=== PATIENT | female | born 1980 | race African-American/Black ===

== ENCOUNTER 2024-03-19 02:38 | Inpatient (IN) | payer BC, MEDICAID ==
[~2024-03-19] VITALS: Ht 162.6 cm; Wt 55.3 kg
[2024-03-19 02:48] VITALS: O2SAT 100
[2024-03-19 03:49] LABS: BASOPHILS % 0.5 % (0.0-2.0); EOSINOPHILS % 0.2 % (0.0-5.0); HEMATOCRIT. 43.2 % (36.0-48.0); HEMOGLOBIN. 15.3 g/dL (12.0-16.0); LYMPHOCYTES % 17.9 % (20.0-50.0); MEAN CORPUSCULAR HEMOGLOBIN 29.8 pg (28.0-32.0); MEAN CORPUSCULAR HGB CONC 35.4 g/dL (31.0-37.0); MEAN CORPUSCULAR VOLUME 84.2 fL (81.0-99.0); MEAN PLATELET VOLUME 8.2 fl (7.4-10.4); MONOCYTES % 6.7 % (2.0-8.0); NEUTROPHILS % 74.7 % (40.0-76.0); PLATELET 200 x1000/uL (130-400); RED BLOOD CELL COUNT 5.13 mill/uL (4.2-5.4); RED CELL DISTRIBUTION WIDTH 13.1 % (11.6-14.6); WHITE BLOOD COUNT 6.4 x1000/uL (4.5-11.0)
[2024-03-19] MEDS: SODIUM CHLORIDE 0.9% 1,000 ML IV ONE (03:54)
[2024-03-19 03:55] LABS: CHLORIDE 97 mEq/L (98-107); POTASSIUM 4.6 mEq/L (3.5-5.1); SODIUM 133 mEq/L (136-145)
[2024-03-19] MEDS: METOCLOPRAMIDE HCL 10MG/2ML VIAL IV STA (03:55)
[2024-03-19] MEDS: KETOROLAC 30MG/ML VIAL IV STA (03:55)
[2024-03-19 03:56] LABS: CALCIUM 9.6 mg/dL (8.7-10.4); CARBON DIOXIDE 26 mEq/L (21-32)
[2024-03-19 04:01] LABS: CREATININE 1.2 mg/dL (0.6-1.0); UREA NITROGEN BLOOD 13 mg/dL (9-23)
[2024-03-19 04:03] LABS: ALANINE AMINOTRANSFERASE 10 IU/L (10-49); ALBUMIN 4.2 g/dL (3.2-4.8); ASPARTATE AMINOTRANSFERASE 31 IU/L (<34); BILIRUBIN DIRECT 0.2 mg/dL (<=3.0); BILIRUBIN TOTAL 0.8 mg/dL (0.1-1.0); PROTEIN TOTAL 7.3 g/dL (6.0-8.3)
[2024-03-19 04:12] LABS: BETA HYDROXYBUTYRATE 1.1 mMol/L (0.0-0.3)
[2024-03-19 04:42] LABS: ETHANOL BLOOD < 10 mg/dL (<10); GLUCOSE 416 mg/dL (70-105)
[2024-03-19 04:44] LABS: HCG SCREEN NEGATIVE
[2024-03-19] MEDS ORDERED: DOCUSATE SODIUM 100MG CAPSULE PO PRN (05:15)
[2024-03-19] MEDS ORDERED: MAGNESIUM/ALUMINUM HYDROXIDE/SIMETHICONE 30ML UDC PO PRN (05:15)
[2024-03-19] MEDS ORDERED: NA PHOS,M-B/NA PHOS,DI-BA ENEMA 118ML PR PRN (05:15)
[2024-03-19] MEDS ORDERED: HYDROCODONE/ACETAMINOPHEN 5/325MG TABLET PO PRN (05:15)
[2024-03-19] MEDS ORDERED: GUAIFENESIN 200MG/10ML SUGAR FREE UDC PO PRN (05:15)
[2024-03-19] MEDS ORDERED: IPRATROPIUM/ALBUTEROL 0.5-3(2.5)MG/3ML NEB HHN PRN (05:15)
[2024-03-19] MEDS ORDERED: DEXTROSE 50% WATER 50ML SYRINGE IV PRN (05:15)
[2024-03-19] MEDS ORDERED: ACETAMINOPHEN 325MG TABLET PO PRN ×2 (05:15)
[2024-03-19] MEDS ORDERED: ONDANSETRON HCL 4MG/2ML INJ IV PRN (05:15)
[2024-03-19] MEDS: INSULIN REGULAR (HUMULIN R) 1000UNITS/10ML VIAL IV NR (05:43)
[2024-03-19] MEDS: SODIUM CHLORIDE 0.9% 1,000 ML IV SCH (05:43)
[2024-03-19 06:13] LABS: BG BASE EXCESS 1.9 mmol/L (-2.0-3.0); BG CARBOXYHEMOGLOBIN 0.6 % (0.5-1.5); BG FRACTION INSPIRED OXYGEN 21; BG HCO3 ACT 25.9 mmol/L (21.0-28.0); BG METHEMOGLOBIN 0.3 % (0.5-1.5); BG OXYHEMOGLOBIN 97.1 % (94.0-98.0); BG PCO2 38.9 mmHg (32.0-45.0); BG PH 7.442 (7.350-7.450); BG PO2 108.1 mmHg (83.0-108.0); BG SAMPLE SITE RIGHT RADIAL; BG TOTAL HEMOGLOBIN 13.8 g/dL (12.0-16.0); BG VENT MODE ROOM AIR
[2024-03-19] MEDS: METOCLOPRAMIDE HCL 10MG/2ML VIAL IV SCH (06:15)
[2024-03-19] MEDS ORDERED: INSULIN LISPRO 100 UNITS/ML SUBCUT SCH (08:20)
[2024-03-19] MEDS: INSULIN LISPRO 100 UNITS/ML SUBCUT SCH (08:36)
[2024-03-19] MEDS: PANTOPRAZOLE SODIUM 40 MG/VIAL IV SCH (09:22)
[2024-03-19] MEDS: BLOOD SUGAR DIAGNOSTIC STRIP TEST SCH (09:22)
[2024-03-19] MEDS: SODIUM CHLORIDE 0.45% 500 ML IV ONE (10:00)
[2024-03-19 10:23] LABS: CALCIUM 8.7 mg/dL (8.7-10.4); CARBON DIOXIDE 25 mEq/L (21-32); CHLORIDE 103 mEq/L (98-107); POTASSIUM 3.4 mEq/L (3.5-5.1); SODIUM 137 mEq/L (136-145)
[2024-03-19 10:28] LABS: GLUCOSE 228 mg/dL (70-105)
[2024-03-19 10:29] LABS: LDL CHOLESTEROL 71 mg/dL (5-100); TRIGLYCERIDE 42 mg/dL (0-150); UREA NITROGEN BLOOD 16 mg/dL (9-23)
[2024-03-19 10:30] LABS: CHOLESTEROL 167 mg/dL (<200); HDL CHOLESTEROL 73 mg/dL (>65)
[2024-03-19 10:31] LABS: BETA HYDROXYBUTYRATE 0.2 mMol/L (0.0-0.3); PHOSPHORUS 3.3 mg/dL (2.5-4.9)
[2024-03-19] MEDS: INSULIN GLARGINE 100 UNITS/ML SUBCUT SCH (11:15)
[2024-03-19 11:46] VITALS: BP 167/90; PULSE 98; RESP 18; TEMP 37.252
[2024-03-19 12:00] VITALS: BP 167/90; PULSE 98; RESP 18; TEMP 37.2252; O2SAT 98
[2024-03-19 13:08] LABS: T4 FREE 1.82 ng/dL (0.89-1.76); TROPONIN I HIGH SENSITIVITY < 4 ng/L (3.0-34)
[2024-03-19 13:09] LABS: THYROID STIMULATING HORMONE 1.79 uIU/mL (0.55-4.78)
[2024-03-19 14:00] VITALS: BP 169/97; PULSE 99; RESP 18; TEMP 37.16964; O2SAT 98
[2024-03-19 16:00] VITALS: BP 169/97; PULSE 99; RESP 18; TEMP 36.89184; O2SAT 98
[2024-03-19] MEDS: MAGNESIUM 4 G PREMIX 100 ML IV NR (16:33)
[2024-03-19] MEDS: POTASSIUM CHLORIDE 20MEQ TABLET SR PO NR (16:33)
[2024-03-19] MEDS: CLONIDINE 0.1MG TABLET PO PRN (17:47)
[2024-03-19 18:58] LABS: TROPONIN I HIGH SENSITIVITY < 4 ng/L (3.0-34)
[2024-03-19] MEDS ORDERED: HYDRALAZINE 20MG/ML VIAL IV PRN (19:00)
[2024-03-19] MEDS ORDERED: HYDRALAZINE 10 MG in SODIUM CHLORIDE 0.9% 49.5 ML IV PRN (19:15)
[2024-03-19 19:39] LABS: CLARITY URINE CLOUDY (CLEAR); COLOR URINE YELLOW (YELLOW); GLUCOSE URINE 2+ (NEGATIVE); KETONES URINE NEGATIVE (NEGATIVE); LEUKOCYTE ESTERASE URINE 2+ (NEGATIVE); NITRITE URINE NEGATIVE (NEGATIVE); OCCULT BLOOD URINE 3+ (NEGATIVE); PH URINE 6.5 (4.5-8.0); PROTEIN URINE NEGATIVE (NEGATIVE); SPECIFIC GRAVITY URINE 1.011 (1.005-1.030); UROBILINOGEN URINE 0.2 E.U./dL (0.2-1.0)
[2024-03-19 19:50] LABS: *AMPHETAMINES SCREEN URINE NEGATIVE (NEGATIVE); *BARBITURATES SCREEN URINE NEGATIVE (NEGATIVE); *BENZODIAZEPINES SCREEN URINE NEGATIVE (NEGATIVE); *COCAINE SCREEN URINE NEGATIVE (NEGATIVE); CANNABINOID URINE SCREEN NEGATIVE (NEGATIVE); ECSTASY MDMA SCREEN URINE NEGATIVE (NEGATIVE); METHADONE URINE SCREEN NEGATIVE (NEGATIVE); OPIATES URINE SCREEN NEGATIVE (NEGATIVE); PHENCYCLIDINE URINE SCREEN NEGATIVE (NEGATIVE)
[2024-03-19 19:55] LABS: BACTERIA URINE 1+; RBC URINE 0-2 /hpf (0-2); SQUAMOUS EPITHELIAL CELL URINE 1+ /lpf (RARE/1+)
[2024-03-20] VITALS: BP 134/87; PULSE 80; RESP 16; TEMP 36.16956; O2SAT 100
[2024-03-20 04:00] VITALS: BP 137/88; PULSE 89; RESP 16; TEMP 36.3918; O2SAT 100
[2024-03-20 08:00] VITALS: BP 147/91; PULSE 88; RESP 20; TEMP 36.61404; O2SAT 99
[2024-03-20] MEDS: LOSARTAN 50 MG TABLET PO SCH (09:00)
[2024-03-20 10:03] LABS: BASOPHILS % 0.7 % (0.0-2.0); EOSINOPHILS % 1.2 % (0.0-5.0); HEMATOCRIT. 40.7 % (36.0-48.0); HEMOGLOBIN. 14.3 g/dL (12.0-16.0); LYMPHOCYTES % 38.1 % (20.0-50.0); MEAN CORPUSCULAR HEMOGLOBIN 29.5 pg (28.0-32.0); MEAN CORPUSCULAR VOLUME 84.2 fL (81.0-99.0); MEAN PLATELET VOLUME 8.2 fl (7.4-10.4); PLATELET 219 x1000/uL (130-400); RED BLOOD CELL COUNT 4.84 mill/uL (4.2-5.4); RED CELL DISTRIBUTION WIDTH 13.1 % (11.6-14.6); WHITE BLOOD COUNT 4.2 x1000/uL (4.5-11.0)
[2024-03-20 10:04] LABS: CALCIUM 9.2 mg/dL (8.7-10.4); CHLORIDE 105 mEq/L (98-107); POTASSIUM 3.5 mEq/L (3.5-5.1); SODIUM 140 mEq/L (136-145)
[2024-03-20 10:05] LABS: CARBON DIOXIDE 26 mEq/L (21-32)
[2024-03-20 10:10] LABS: CREATININE 0.8 mg/dL (0.6-1.0); GLUCOSE 127 mg/dL (70-105); UREA NITROGEN BLOOD 8 mg/dL (9-23)
[2024-03-20 11:56] VITALS: BP_SYST 140; BP_SYST 207; BP_DIAS 122; BP_DIAS 90; PULSE 86; RESP 20; TEMP 36.78072; O2SAT 98
[2024-03-20 11:59] LABS: POTASSIUM 3.6 mEq/L (3.5-5.1)
[2024-03-20] MEDS: CEFTRIAXONE 1GM/50ML 50ML IV SCH (14:11)
[2024-03-20] MEDS ORDERED: NALOXONE HCL 0.4MG/ML VIAL IV PRN (15:00)
[2024-03-20] MEDS ORDERED: AMLODIPINE 10MG TABLET PO SCH (15:15)
[2024-03-20] MEDS ORDERED: NITROFURANTOIN 100MG M/M CAPSULE PO SCH (21:00)
[2024-03-21] MEDS ORDERED: FAMOTIDINE 20MG/2ML VIAL IV SCH (09:00)
== END 2024-03-20 15:33 | disposition left against medical advice (07) | DRG 637 ==
LOC: ER 02:38 → 6EST 04:52 → EDBEDREQSVC 08:56
PROVIDERS: ADMIT Internal Medicine; ATTEND Internal Medicine
DX: E11.65 Type 2 diabetes mellitus with hyperglycemia (principal); N17.0 Acute kidney failure with tubular necrosis; N39.0 Urinary tract infection, site not specified; Z53.29 Procedure and treatment not carried out because of patient's decision for other reasons; K31.84 Gastroparesis; E11.43 Type 2 diabetes mellitus with diabetic autonomic (poly)neuropathy; K21.9 Gastro-esophageal reflux disease without esophagitis; E87.6 Hypokalemia; D25.9 Leiomyoma of uterus, unspecified; E55.9 Vitamin D deficiency, unspecified; E11.36 Type 2 diabetes mellitus with diabetic cataract; Z79.84 Long term (current) use of oral hypoglycemic drugs; Z79.4 Long term (current) use of insulin; Z79.899 Other long term (current) drug therapy
CPT/HCPCS: 36415; 36600; 71045; 74176; 80048; 80061; 80076; 80305; 80320; 81003; 82010; 82375; 82805; 82962; 83036; 83519; 83605; 83735; 83930; 84100; 84132; 84439; 84443; 84484; 84681; 84703; 85025; 87077; 99285; J0696; J1815; J1885; J2470; J2765; J3475; J7030; G0480

== ENCOUNTER 2024-03-21 08:54 | Inpatient (IN) | payer BC ==
[~2024-03-21] VITALS: Ht 157.5 cm; Wt 61.7 kg
[2024-03-21 09:41] LABS: BASOPHILS % 0.4 % (0.0-2.0); EOSINOPHILS % 0.3 % (0.0-5.0); HEMATOCRIT. 42.7 % (36.0-48.0); LYMPHOCYTES % 14.1 % (20.0-50.0); MEAN CORPUSCULAR HEMOGLOBIN 29.7 pg (28.0-32.0); MEAN CORPUSCULAR HGB CONC 35.1 g/dL (31.0-37.0); MEAN CORPUSCULAR VOLUME 84.4 fL (81.0-99.0); MONOCYTES % 3.3 % (2.0-8.0); NEUTROPHILS % 81.9 % (40.0-76.0); PLATELET 229 x1000/uL (130-400); RED BLOOD CELL COUNT 5.07 mill/uL (4.2-5.4); RED CELL DISTRIBUTION WIDTH 13.3 % (11.6-14.6); WHITE BLOOD COUNT 5.4 x1000/uL (4.5-11.0)
[2024-03-21 09:52] LABS: CHLORIDE 98 mEq/L (98-107)
[2024-03-21 09:53] LABS: CARBON DIOXIDE 29 mEq/L (21-32); POTASSIUM 4.2 mEq/L (3.5-5.1); PROTHROMBIN TIME 10.7 sec (9.6-11.0); SODIUM 134 mEq/L (136-145)
[2024-03-21] MEDS: HALOPERIDOL LACTATE 5MG/ML VIAL IM STA (09:53)
[2024-03-21] MEDS: SODIUM CHLORIDE 0.9% 1,000 ML IV ONE (09:53)
[2024-03-21] MEDS: DIPHENHYDRAMINE 50MG/ML VIAL IV STA (09:53)
[2024-03-21 09:54] LABS: CALCIUM 10.2 mg/dL (8.7-10.4)
[2024-03-21 09:58] LABS: CREATININE 1.1 mg/dL (0.6-1.0); GLUCOSE 368 mg/dL (70-105)
[2024-03-21 09:59] LABS: UREA NITROGEN BLOOD 10 mg/dL (9-23)
[2024-03-21] MEDS: HYDRALAZINE 20MG/ML VIAL IV ONE (11:01)
[2024-03-21 11:23] LABS: CLARITY URINE CLEAR (CLEAR); COLOR URINE YELLOW (YELLOW); GLUCOSE URINE 3+ (NEGATIVE); KETONES URINE TRACE (NEGATIVE); LEUKOCYTE ESTERASE URINE NEGATIVE (NEGATIVE); NITRITE URINE NEGATIVE (NEGATIVE); OCCULT BLOOD URINE 2+ (NEGATIVE); PH URINE 7.5 (4.5-8.0); PROTEIN URINE TRACE (NEGATIVE); SPECIFIC GRAVITY URINE 1.017 (1.005-1.030); UROBILINOGEN URINE 0.2 E.U./dL (0.2-1.0)
[2024-03-21 11:41] LABS: BACTERIA URINE FEW; SQUAMOUS EPITHELIAL CELL URINE FEW /lpf (RARE/1+); YEAST URINE NONE SEEN
[2024-03-21 12:00] VITALS: BP 131/77; PULSE 98; TEMP 36.16956; O2SAT 98
[2024-03-21 12:30] VITALS: BP 131/77; PULSE 98; RESP 18; TEMP 36.1956
[2024-03-21] MEDS ORDERED: DOCUSATE SODIUM 100MG CAPSULE PO PRN (13:45)
[2024-03-21] MEDS ORDERED: DEXTROSE 50% WATER 50ML SYRINGE IV PRN (13:45)
[2024-03-21] MEDS ORDERED: ACETAMINOPHEN 325MG TABLET PO PRN (13:45)
[2024-03-21] MEDS ORDERED: MAGNESIUM/ALUMINUM HYDROXIDE/SIMETHICONE 30ML UDC PO PRN (13:45)
[2024-03-21] MEDS: SODIUM CHLORIDE 0.9% 1,000 ML IV SCH (14:00)
[2024-03-21 16:00] VITALS: BP 130/77; PULSE 90; TEMP 36.28068; O2SAT 98
[2024-03-21] MEDS: LEVOFLOXACIN 750MG PREMIX 150 ML IV SCH (16:54)
[2024-03-21] MEDS: METOCLOPRAMIDE HCL 10MG/2ML VIAL IV SCH (16:54)
[2024-03-21] MEDS: PANTOPRAZOLE SODIUM 40 MG/VIAL IV SCH (16:54)
[2024-03-21] MEDS: BLOOD SUGAR DIAGNOSTIC STRIP TEST SCH (17:20)
[2024-03-21] MEDS: INSULIN LISPRO 100 UNITS/ML SUBCUT SCH (18:35)
[2024-03-21] MEDS: ONDANSETRON HCL 4MG/2ML INJ IV PRN (18:38)
[2024-03-21 20:00] VITALS: BP 108/60; PULSE 101; RESP 18; TEMP 36.28068; O2SAT 100
[2024-03-21] MEDS ORDERED: ZOLPIDEM TARTRATE 5MG TABLET PO PRN (21:00)
[2024-03-22] VITALS: BP 110/64; PULSE 98; RESP 18; TEMP 36.22512; O2SAT 100
[2024-03-22 04:00] VITALS: BP 149/95; PULSE 105; RESP 16; TEMP 36.3918; O2SAT 99
[2024-03-22 08:00] VITALS: BP 155/95; PULSE 100; RESP 18; TEMP 36.78072; O2SAT 99
[2024-03-22 08:44] LABS: CHLORIDE 104 mEq/L (98-107); POTASSIUM 4.1 mEq/L (3.5-5.1); SODIUM 138 mEq/L (136-145)
[2024-03-22 08:45] LABS: CARBON DIOXIDE 26 mEq/L (21-32)
[2024-03-22 08:50] LABS: GLUCOSE 216 mg/dL (70-105); UREA NITROGEN BLOOD 10 mg/dL (9-23)
[2024-03-22] MEDS: ENOXAPARIN 40MG/0.4ML SYR SUBCUT SCH (09:00)
[2024-03-22 09:46] LABS: BASOPHILS % 0.7 % (0.0-2.0); EOSINOPHILS % 0.3 % (0.0-5.0); HEMATOCRIT. 38.8 % (36.0-48.0); HEMOGLOBIN. 13.5 g/dL (12.0-16.0); LYMPHOCYTES % 27.9 % (20.0-50.0); MEAN CORPUSCULAR HEMOGLOBIN 29.9 pg (28.0-32.0); MEAN CORPUSCULAR HGB CONC 34.8 g/dL (31.0-37.0); MEAN CORPUSCULAR VOLUME 85.9 fL (81.0-99.0); MEAN PLATELET VOLUME 8.1 fl (7.4-10.4); NEUTROPHILS % 66.1 % (40.0-76.0); PLATELET 220 x1000/uL (130-400); RED BLOOD CELL COUNT 4.52 mill/uL (4.2-5.4); RED CELL DISTRIBUTION WIDTH 13.1 % (11.6-14.6); WHITE BLOOD COUNT 4.9 x1000/uL (4.5-11.0)
[2024-03-22 12:00] VITALS: BP 185/111; PULSE 100; RESP 20; TEMP 36.55848; O2SAT 99
[2024-03-22] MEDS: CLONIDINE 0.1MG TABLET PO PRN (12:44)
[2024-03-22 12:59] LABS: *AMPHETAMINES SCREEN URINE NEGATIVE (NEGATIVE); *BARBITURATES SCREEN URINE NEGATIVE (NEGATIVE); *BENZODIAZEPINES SCREEN URINE NEGATIVE (NEGATIVE); *COCAINE SCREEN URINE NEGATIVE (NEGATIVE); CANNABINOID URINE SCREEN NEGATIVE (NEGATIVE); ECSTASY MDMA SCREEN URINE NEGATIVE (NEGATIVE); METHADONE URINE SCREEN NEGATIVE (NEGATIVE); OPIATES URINE SCREEN NEGATIVE (NEGATIVE); PHENCYCLIDINE URINE SCREEN NEGATIVE (NEGATIVE)
[2024-03-22] MEDS ORDERED: INSU100I28 SQ (15:28)
[2024-03-22] MEDS ORDERED: METO-293 MT (15:28)
[2024-03-22] MEDS ORDERED: FAMO-135 MT (15:28)
[2024-03-22] MEDS ORDERED: LEVO-65 MT (15:30)
[2024-03-22 16:00] VITALS: BP 121/78; PULSE 96; RESP 18; TEMP 36.78072; O2SAT 100
[2024-03-22 17:26] VITALS: BP 121/78; PULSE 96; TEMP 97.8; O2SAT 100
[2024-03-23] MEDS ORDERED: FAMOTIDINE 20MG/2ML VIAL IV SCH (09:00)
== END 2024-03-22 18:15 | disposition home or self-care (01) | DRG 74 ==
LOC: ER 08:54 → 6EST 11:09 → EDBEDREQ 11:21
PROVIDERS: ADMIT Internal Medicine; ATTEND Internal Medicine
DX: E11.43 Type 2 diabetes mellitus with diabetic autonomic (poly)neuropathy (principal); N39.0 Urinary tract infection, site not specified; K31.84 Gastroparesis; N28.9 Disorder of kidney and ureter, unspecified; Z88.0 Allergy status to penicillin; Z88.5 Allergy status to narcotic agent; Z88.6 Allergy status to analgesic agent
CPT/HCPCS: 36415; 80048; 80305; 81003; 82962; 83036; 85025; 93970; 99285; J0360; J1200; J1630; J1650; J1815; J1956; J2405; J2470; J2765; J7030